=== PATIENT | male | born 1960 | race American Indian/Alaskan Native ===

== ENCOUNTER 2019-04-03 07:53 | Day surgery (SDC) | payer OTHER ==
[2019-04-03] MEDS ORDERED: SODIUM CHLORIDE 0.9% 500 ML 500 ML IV SCH (09:00)
[2019-04-03] MEDS ORDERED: ASPIRIN EC 325 MG TAB PO ONE (09:30)
[2019-04-03] MEDS ORDERED: MIDAZOLAM 2 MG/2 ML INJ ONE (11:34)
[2019-04-03] MEDS ORDERED: HEPARIN/NS 5000 UNIT/500ML 1,000 ML IR ONE (11:34)
[2019-04-03] MEDS ORDERED: HEPARIN 10,000 UNITS/10 ML VIAL ONE (11:34)
[2019-04-03] MEDS ORDERED: NITROGLYCERIN SYRINGE 3 ML ONE (11:35)
[2019-04-03] MEDS ORDERED: VERAPAMIL 5 MG/2 ML INJ ONE (11:35)
[2019-04-03] MEDS ORDERED: fentaNYL 100 MCG/2 ML INJ ONE (11:35)
[2019-04-03] MEDS ORDERED: LIDOCAINE (2%) 20 MG/1 ML VIAL 20 ML MDV INFILTRATI ONE (11:35)
--- NOTE | 2019-04-03 13:28 | Short Stay Summary ---
Short Stay Documentation Date of service: 04/03/19 - Allergies and Medications Current Medications: Allergies No Known Allergies Allergy (Unverified 04/03/19 07:53) Home Medications Medication Instructions Recorded Confirmed Last Taken Type Azilsartan Med/Chlorthalidone 40 mg PO DAILY 04/03/19 04/03/19 04/02/19 History 1 tab Doxazosin 2 mg PO DAILY 04/03/19 04/03/19 04/02/19 History Fluticasone 50 mcg INHALATION BID 04/03/19 04/03/19 03/31/19 History Levocetirizine Dihydrochloride 5 mg PO DAILY 04/03/19 04/03/19 03/19/19 History [Xyzal] Rosuvastatin Calcium 20 mg PO DAILY 04/03/19 04/03/19 04/02/19 History 1 tab Tizanidine HCl [Tizanidine 2mg tab] 2 mg PO DAILY 04/03/19 04/03/19 03/26/19 History amLODIPine [Norvasc] 10 mg PO DAILY 04/03/19 04/03/19 04/02/19 19:00 History Active Medications Sodium Chloride (Nacl 0.9% 500 Ml) 500 mls @ 50 mls/hr IV DIRECT ISAIAS Stop: 04/03/19 18:59 - Brief post op/procedure progress note Date of procedure: 04/03/19 Pre-op diagnosis: abnormal stress test, preop eval, mild CMP Post-op diagnosis: same Procedure: C - see dictated cath report Anesthesia: local Estimated blood loss: none Condition: stable - Disposition Condition at discharge: Good Disposition: [id number] TO HOME OR SELFCARE - Discharge Diagnoses (1) Nonischemic cardiomyopathy Status: Chronic (2) Normal coronary arteries Status: Chronic Short Stay Discharge Plan Activity: advance as tolerated Wound: open to air, keep clean and dry, per your surgeon's advice Additional Instructions: follow up with Primary Medical Doctor in 1 week, return to Emergency Room for medical emergency. Follow up with: TREVOR COLEMAN MD [Primary Care Provider] - 7 Days Forms: [facility] PCI D/C Instructions
[2019-04-03 14:04] VITALS: BP 132/82
--- NOTE | 2019-04-03 14:30 | Cardiac Catherization Report ---
CARDIAC CATHETERIZATION REFERRING PHYSICIAN: ____ INDICATION FOR PROCEDURE: The patient is a very pleasant 58-year-old -[place] gentleman with multiple risk factors, abnormal nuclear stress test, preoperative evaluation, mild cardiomyopathy, referred for left heart catheterization. Risks, benefits, alternatives explained at length prior to obtaining informed consent. PROCEDURE IN DETAIL: The patient was brought to the manufacturing laborer in a postabsorptive state, prepped and draped in sterile fashion. Mirza's test in right hand was normal. A 2 mL of 2% lidocaine used to anesthetize the right wrist. A standard 6-Macedonian hydrophilic sheath used to cannulate the right radial artery via modified Seldinger technique. All exchanges performed to exchange a J-tip guidewire. JL3.5 catheter was used to engage the left main. No dampening or ventricularization. Cineangiography performed in all projections. JR4 catheters cross the aortic valve under fluoroscopic guidance. Left ventriculography performed in 30 SANCHEZ and 30 UZBEK projections via hand injections, catheter flushed. Manual pullback performed with continuous pressure monitoring. Catheter used to engage the right coronary. No dampening or ventricularization. Cineangiography performed in all projections. It should be noted that the patient did develop an intermittent likely rate related right bundle branch block during the procedure. This is resolved by the end of the procedure. I directly supervised the administration of moderate sedation from 11:52 a.m. to 12:20 p.m. with fentanyl and Versed. FINDINGS: Aortic pressure is 120/80, LV pressure is 120, LVP of 15 mmHg. Left ventriculography reveals mild global left ventricular hypokinesis, estimated ejection fraction 40-45%. No evidence of aortic stenosis, high normal LVEDP. CORONARY ANATOMY: This is a left dominant system. Right coronary is small, nondominant, no significant disease. Left main is short, no significant disease. Left circumflex, moderate sized vessel, courses AV groove, left PDA. No significant disease. LAD is a moderate sized vessel, courses anterior intergroove, wraps around the apex, no significant disease in the LAD or diagonal systems. CONCLUSIONS: 1. No angiographic evidence of significant epicardial coronary disease in this left dominant system. 2. Mild global left ventricular hypokinesis, estimated ejection fraction of 40-45%. 3. No evidence of aortic stenosis. 4. High normal LVEDP. 5. Intermittent rate related right bundle-branch block, now resolved. The patient is clinically stable, chest pain free. Followup with ____ in the office. Results of procedure explained in length to the patient and family. All questions and concerns were addressed. These findings are consistent with a mild nonischemic cardiomyopathy, which is very well compensated and stable, standard radial care. JOB# [id number] DEWEY/NTS
== END 2019-04-03 07:54 | disposition home or self-care (01) ==
LOC: CATHLABREC 07:53
PROVIDERS: ATTEND Internal Medicine
DX: I42.0 Dilated cardiomyopathy (principal); R93.1 Abnormal findings on diagnostic imaging of heart and coronary circulation; I10 Essential (primary) hypertension; E78.00 Pure hypercholesterolemia, unspecified; E66.3 Overweight; R94.31 Abnormal electrocardiogram [ECG] [EKG]; I44.7 Left bundle-branch block, unspecified; Z79.899 Other long term (current) drug therapy; Z72.0 Tobacco use; Z72.89 Other problems related to lifestyle
CPT/HCPCS: 93005; 93010; 93458; 99156; C1894; J1644; J2250; J3010; J7040; Q9967